=== PATIENT | female | born 1935 | race Caucasian/White ===

== ENCOUNTER 2019-03-16 10:30 | Outpatient (RCR) | payer MEDICARE, OTHER, BC, SELFPAY ==
--- NOTE | 2019-02-22 16:38 | HMH.PTOPEV ---
PT Outpatient Evaluation Rehab PT Outpatient Evaluation Start: 02/22/19 15:24 Freq: Status: Active Protocol: Document 02/22/19 15:24 MARLONMAXINE (Rec: 02/22/19 16:38 SANTIAGO [id number]) Electronically Signed By Alfred Bailon, SEUN 02/22/19 15:24 Outpatient Therapy Subjective History Subjective History This is the initial Physical Therapy evaluation for Jasmine Arvizu. Pt is an 83 y/o female referred to PT for c/o R sided SIJ pain. Pt reports pain began beginning of January. Pt reprots she was shoveling dirt out of her garage after it had rained a lot. Pt reports she did not feel any pain at the time but a day later she began having soreness and pain in low back . Pt reports now pain has localized to R sided SIJ. Chief Complaint Pain Symptom Type Sharp Symptoms Relieved By Heat Symptoms Aggravated By Twisting Prior Functional Limitations None Current Functional Limitations Housework,Recreation Activity, Stairs Symptom Description Intermittent Level of pain today (0-10) 0 Pain scale - at its best (0-10) 0 Pain scale - at its worst (0-10) 6 Lumbopelvic Eval Posture Thoracic Spine Posture Standing Position Increased Kyphosis Lumbar Spine Posture Standing Position Flexed Assistive device Assistive Devices Straight Cane Palapation tenderness right thoracic spinal tenderness No lumbar spinal tenderness No paraspinal tenderness No buttock tenderness No tenderness over symphysis pubis No Lumbar/Sacral Palpation Findings Tenderness Lumbar/Sacral Palpation Overall Comment TTP at R SIJ ligament Range of Motion Right Lumbar Spine Lateral Flexion 10 w/ pain Active Range of Motion (degrees) Lumbar Spine ROM Limitations Pain Lumbar Spine ROM Reason Not Measured Within Functional Limits Special Tests Lumbar Spine Screen Negative Hip Scouring (Quadrant) Test Positive Right Sacroiliac Joint Distraction Test Positive Right Outpatient Therapy Assessment Impairments Problems/Impairmments Palpation Tenderness,Impaired Range of Motion,Impaired Household Care,Impaired Stair Climbing,Impaired Recreational Activities,Subjective C/O Pain,Impaired Self Care/Self
== END 2019-03-16 10:35 | disposition home or self-care (01) ==
LOC: PT 10:30
PROVIDERS: Visit Provider Internal Medicine Adolescent Medicine
DX: M46.1 Sacroiliitis, not elsewhere classified (principal)
CPT/HCPCS: 97010; 97014; 97033; 97110; 97163; G0283

== ENCOUNTER → 2019-08-19 17:23 | Outpatient (CLI) | payer MEDICARE, OTHER, BC, SELFPAY | PROVIDERS: Visit Provider Obstetrics & Gynecology | DX: R39.89 Other symptoms and signs involving the genitourinary system (principal) | CPT/HCPCS: 87086; 87088; 87186 ==

== ENCOUNTER → 2019-09-29 17:33 | Outpatient (CLI) | payer MEDICARE, OTHER, BC, SELFPAY | PROVIDERS: Visit Provider Obstetrics & Gynecology | DX: N39.0 Urinary tract infection, site not specified (principal); N89.8 Other specified noninflammatory disorders of vagina | CPT/HCPCS: 87086; 87088; 87186 ==

== ENCOUNTER 2021-03-10 11:30 | Emergency (ER) | payer MEDICARE, SELFPAY ==
[2021-03-10 12:10] VITALS: BP 142/52; PULSE 61; RESP 16; TEMP 36.9; O2SAT 97; BMI 26.5
[2021-03-10 12:21] VITALS: BP 142/52; PULSE 61; RESP 16; TEMP 36.9; O2SAT 97
--- NOTE | 2021-03-10 12:31 | HMH.EDUTC ---
[facility] Disposition Clinical Impression: Generalized pain Disposition: Home, Self-Care Condition on Discharge: Good Referrals: Ryan Cast MD [Primary Care Provider] - 3 days Medical Decision Making - Medical Records Medical records reviewed: No: I reviewed the patient's medical records. - Andrew Inquiry Pt receiving controlled substance: No Vital Signs: 03/10/21 12:10 03/10/21 12:21 03/10/21 12:42 Temperature 98.4 F 98.4 F 98.5 F Temperature Source Oral Oral Pulse Rate 61 Pulse Rate [Left] 61 57 L Respiratory Rate 16 16 18 Blood Pressure 142/52 H Blood Pressure [Right Arm] 120/63 Blood Pressure [Right Radial Artery] 142/52 H Blood Pressure Mean [Right Arm] 82 Blood Pressure Mean [Right Radial Artery] 82 Blood Pressure Source Blood Pressure Source [Right Arm] Automatic Cuff Blood Pressure Source [Right Radial Artery] Automatic Cuff Blood Pressure Position Blood Pressure Position [Right Arm] Sitting Blood Pressure Position [Right Radial Artery] Sitting 02 Sat by Pulse Oximetry 97 97 Oxygen Delivery Method Room Air Room Air 03/10/21 13:18 03/10/21 14:47 03/10/21 14:58 Temperature 98.5 F Temperature Source Oral Pulse Rate 68 Pulse Rate [Left] 59 L 66 Respiratory Rate 18 18 18 Blood Pressure 119/70 Blood Pressure [Right Arm] 126/58 L 119/51 L Blood Pressure [Right Radial Artery] Blood Pressure Mean [Right Arm] 80 73 Blood Pressure Mean [Right Radial Artery] Blood Pressure Source Automatic Cuff Blood Pressure Source [Right Arm] Blood Pressure Source [Right Radial Artery] Blood Pressure Position Sitting Blood Pressure Position [Right Arm] Blood Pressure Position [Right Radial Artery] 02 Sat by Pulse Oximetry 99 97 Oxygen Delivery Method Room Air - Lab Data Lab Results 03/10/21 13:31: WBC 1.7 L*, RBC 3.01 L, Hgb 9.0 L, Hct 27.2 L, MCV 90.1, MCH 29.8, MCHC 33.1, RDW 20.0 H, Plt Count 63 L, MPV 9.7, Neut % (Auto) 28.2 L, Lymph % (Auto) 66.4 H, [place] % (Auto) 3.4, Eos % (Auto) 1.4, Baso % (Auto) 0.6, Neut # (Auto) 0.5 L*, Lymph # (Auto) 1.1, [place] # (Auto) 0.1, Eos # (Auto) 0.0, Baso # (Auto) 0.0, Total Counted 50, Neutrophils % (Manual) 38 L, Lymphocytes % (Manual) 54 H, Atypical Lymphs % 2.0, Monocytes % (Manual) 4, Eosinophils % (Manual) 2, Platelet Estimate Marked decrease, RBC Morphology Normal 03/10/21 13:31: Sodium 136, Potassium 4.1, Chloride 102, Carbon Dioxide 24, Anion Gap 10.0, BUN 19 H, Creatinine 0.80, Estimated Creat Clear 43, Estimated GFR 68, Est GFR ( Amer) 82, Glucose 118 H, Calcium 9.5 03/10/21 14:13: Urine Color Yellow, Urine Appearance Clear, Urine pH 5.5, Ur Specific [place] >= 1.030, Urine Protein 1+, Urine Glucose (UA) Negative, Urine Ketones Negative, Urine Blood 1+, Urine Nitrate Negative, Urine Bilirubin Negative, Urine Urobilinogen 1.0, Ur Leukocyte Esterase Trace, Urine RBC 5-10, Urine WBC 3-5, Ur Squamous Epith Cells 3-5, Urine Bacteria None Result diagrams: 03/10/21 13:31 03/10/21 13:31 Medical Decision Narrative: She was sent to the er due to her history, her pelvic pain and her age. [facility] HPI - General Stated complaint: fever, vaginal burning and irritation Time Seen by Provider: 03/10/21 12:33 Mode of Arrival: Ambulatory Source of Information: Patient Limitations: No Limitations Description of Symptoms (Recalled from Triage Doc. by RN): vaginal burning and pain HEENT Symptoms (Recalled from RN notes): No Resp Symptoms (Recalled from RN notes): No Skin Symptoms (Recalled from RN notes): No MS Symptoms (Recalled from RN notes): No Functional Status (Recalled from RN notes): wnl - History of Present Illness Provider Complaint: She is here with chief complaint of having pain in her groin. She has a history of vulva cancer. She had 2 lesions removed last week by her oncologist. She states that over the past 2 days she has began hurting more and more. She denies any vaginal drainage or other symp
[2021-03-10 12:42] VITALS: BP 120/63; PULSE 57; RESP 18; TEMP 36.9; O2SAT 97; BMI 26.5
--- NOTE | 2021-03-10 13:07 | CT_ITS ---
PROCEDURE INFORMATION: Exam: CT Head Without Contrast Exam date and time: 03/10/2021 1:07 PM Age: 85 years old Clinical indication: Altered mental status/memory loss; Additional info: AMS TECHNIQUE: Imaging protocol: Computed tomography of the head without contrast. Radiation optimization: All CT scans at this facility use at least one of these dose optimization techniques: automated exposure control; mA and/or kV adjustment per patient size (includes targeted exams where dose is matched to clinical indication); or iterative reconstruction. COMPARISON: No relevant prior studies available. FINDINGS: Brain: Periventricular and subcortical white matter areas of hypoattenuation, likely chronic small vessel ischemic change, demyelination, or gliosis. There is parenchymal atrophy. 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 No mass, hemorrhage, or acute infarction. Cerebral ventricles: No ventriculomegaly. Bones/joints: Normal. Paranasal sinuses: Ethmoid and left maxillary sinus disease. Mastoid air cells: Normal as visualized. Vasculature: Atherosclerotic vascular disease. Soft tissues: Unremarkable. IMPRESSION: No acute intracranial abnormality.
--- NOTE | 2021-03-10 13:11 | PC.NURSE ---
pt went to restroom, pt contaminated urine with stool. Will attempt to obtain another urine specimen
--- NOTE | 2021-03-10 13:12 | PC.NURSE ---
notified rad of CT order
[2021-03-10 13:18] VITALS: BP 126/58; PULSE 59; RESP 18; O2SAT 99
[2021-03-10 13:39] LABS: Chloride 102 mmol/L (98-107); Potassium 4.1 mmoL/L (3.5-5.1); Sodium 136 mmol/L (136-145)
[2021-03-10 13:42] LABS: Blood Urea Nitrogen 19 mg/dl (7-17); Calcium 9.5 mg/dl (8.4-10.2); Carbon Dioxide 24 mmol/L (22.0-30.0); Creatinine Clearance Estimated 43 mL/min (50-200); Estimated Glomerular Filt Rate 68 ml/min (>60); GFR (African American) 82 ML/MIN (>60); Glucose 118 mg/dl (74-100)
[2021-03-10 13:46] LABS: Mean Corpuscular HGB Conc 33.1 g/dL (31.8-35.4); Mean Corpuscular Hemoglobin 29.8 pg (27.0-31.2); Monocytes # 0.1 K/mm3 (0.1-1.0); Platelet Count 63 K/mm3 (142-424); White Blood Count 1.7 K/mm3 (4.8-10.8)
[2021-03-10 13:49] LABS: Basophils % 0.6 % (0.1-2.0); Eosinophils % 1.4 % (0.1-12.0); Hematocrit 27.2 % (37.0-47.0); Lymphocytes # 1.1 K/mm3 (0.7-4.5); Lymphocytes % 66.4 % (10-50); Mean Corpuscular Volume 90.1 fl (81-99); Mean Platelet Volume 9.7 fl (7.4-10.4); Monocytes % 3.4 % (1.7-9.3); Neutrophils # 0.5 K/mm3 (1.8-7.8); Neutrophils % 28.2 % (37.0-80.0); Red Blood Count 3.01 M/mm3 (4.20-5.40)
[2021-03-10 13:51] LABS: MANUAL DIFFERENTIAL MANUAL DIFFERENTIAL (MANUAL DIFF)
[2021-03-10 14:00] LABS: Eosinophils % 2 % (0-3); Lymphocytes % 54 % (10-50); Monocytes % 4 % (2-9); Neutrophils % 38 % (42-76); Platelet Estimate Marked Decrease; RBC Morphology Normal; Total Cells Counted 50
[2021-03-10 14:19] LABS: Microscopic, Urine URINE MICROSCOPIC (MICROSCOPIC)
[2021-03-10 14:20] LABS: Appearance,Urine CLEAR (Clear); Bilirubin,Urine Negative (Negative); Blood, Urine 1+ (Negative); Color,Urine YELLOW (Yellow); Glucose,Urine (UA) Negative (Negative); Ketones,Urine Negative (Negative); Leukocyte Esterase,Urine TRACE (Negative); Nitrate,Urine Negative (Negative); PH,Urine 5.5 (5.0-8.5); Protein,Urine 1+ (Negative); Specific Gravity, Urine >= 1.030 (1.005-1.030)
--- NOTE | 2021-03-10 14:30 | HMH.EDGENADL ---
ED Disposition Clinical Impression: Generalized pain Disposition: Home, Self-Care Condition on Discharge: Good Referrals: Ryan Cast MD [Primary Care Provider] - 3 days Time of Disposition: 14:35 - Critical Care Critical Care Time: No Attestation: On 03/10/21, the high probability of a clinically significant, sudden or life threatening deterioration of the following system(s) required my full and direct attention, intervention and personal management. The time I documented below is in addition to time spent performing reported procedures but includes the following listed in this critical care notation. Medical Decision Making - Medical Records Medical records reviewed: Yes: I reviewed the patient's medical records. - Andrew Inquiry Pt receiving controlled substance: No Vital Signs: 03/10/21 12:10 03/10/21 12:21 03/10/21 12:42 Temperature 98.4 F 98.4 F 98.5 F Temperature Source Oral Oral Pulse Rate 61 Pulse Rate [Left] 61 57 L Respiratory Rate 16 16 18 Blood Pressure 142/52 H Blood Pressure [Right Arm] 120/63 Blood Pressure [Right Radial Artery] 142/52 H Blood Pressure Mean [Right Arm] 82 Blood Pressure Mean [Right Radial Artery] 82 Blood Pressure Source [Right Arm] Automatic Cuff Blood Pressure Source [Right Radial Artery] Automatic Cuff Blood Pressure Position [Right Arm] Sitting Blood Pressure Position [Right Radial Artery] Sitting 02 Sat by Pulse Oximetry 97 97 Oxygen Delivery Method Room Air Room Air 03/10/21 13:18 Temperature Temperature Source Pulse Rate Pulse Rate [Left] 59 L Respiratory Rate 18 Blood Pressure Blood Pressure [Right Arm] 126/58 L Blood Pressure [Right Radial Artery] Blood Pressure Mean [Right Arm] 80 Blood Pressure Mean [Right Radial Artery] Blood Pressure Source [Right Arm] Blood Pressure Source [Right Radial Artery] Blood Pressure Position [Right Arm] Blood Pressure Position [Right Radial Artery] 02 Sat by Pulse Oximetry 99 Oxygen Delivery Method - Lab Data Lab results reviewed: Yes: I reviewed the patient's lab results. Lab Results 03/10/21 13:31: WBC 1.7 L*, RBC 3.01 L, Hgb 9.0 L, Hct 27.2 L, MCV 90.1, MCH 29.8, MCHC 33.1, RDW 20.0 H, Plt Count 63 L, MPV 9.7, Neut % (Auto) 28.2 L, Lymph % (Auto) 66.4 H, [place] % (Auto) 3.4, Eos % (Auto) 1.4, Baso % (Auto) 0.6, Neut # (Auto) 0.5 L*, Lymph # (Auto) 1.1, [place] # (Auto) 0.1, Eos # (Auto) 0.0, Baso # (Auto) 0.0, Total Counted 50, Neutrophils % (Manual) 38 L, Lymphocytes % (Manual) 54 H, Atypical Lymphs % 2.0, Monocytes % (Manual) 4, Eosinophils % (Manual) 2, Platelet Estimate Marked decrease, RBC Morphology Normal 03/10/21 13:31: Sodium 136, Potassium 4.1, Chloride 102, Carbon Dioxide 24, Anion Gap 10.0, BUN 19 H, Creatinine 0.80, Estimated Creat Clear 43, Estimated GFR 68, Est GFR ( Amer) 82, Glucose 118 H, Calcium 9.5 03/10/21 14:13: Urine Color Yellow, Urine Appearance Clear, Urine pH 5.5, Ur Specific [place] >= 1.030, Urine Protein 1+, Urine Glucose (UA) Negative, Urine Ketones Negative, Urine Blood 1+, Urine Nitrate Negative, Urine Bilirubin Negative, Urine Urobilinogen 1.0, Ur Leukocyte Esterase Trace, Urine RBC 5-10, Urine WBC 3-5, Ur Squamous Epith Cells 3-5, Urine Bacteria None Result diagrams: 03/10/21 13:31 03/10/21 13:31 - CT Data CT Scan: Head Time Received: 14:[address] Reviewed: Yes: I have reviewed the patient's CT results, I discussed the CT results w/the radiologist Preliminary Findings: Normal/NAD Medical Decision Narrative: 85yo F evaluated for generalized pain. Patient is in no acute distress on initial evaluation. External valvular exam is completed with nursing at bedside. Pale mucosa but no active lesion, drainage, wound appreciated. Labs are completed and mild abnormalities to urinalysis. Treatment is deferred at this time for culture. Shows patient is dehydrated. Encourage the patient to drink more water. Patient sent for CT head given the daughter's co
[2021-03-10 14:47] VITALS: BP 119/51; PULSE 66; RESP 18; O2SAT 97
[2021-03-10 14:58] VITALS: BP 119/70; PULSE 68; RESP 18; TEMP 36.9; O2SAT 94
== END 2021-03-10 14:59 | disposition home or self-care (01) ==
LOC: UTC 11:34 → ER 12:42
PROVIDERS: Family Medicine; Emergency Provider Nurse Practitioner Family; PCP Internal Medicine Adolescent Medicine
DX: R10.30 Lower abdominal pain, unspecified (principal); C51.9 Malignant neoplasm of vulva, unspecified; I10 Essential (primary) hypertension; F33.1 Major depressive disorder, recurrent, moderate; Z79.899 Other long term (current) drug therapy
CPT/HCPCS: 70450; 80048; 81001; 85007; 85025; 99284

== ENCOUNTER → 2021-03-16 13:20 | Outpatient (CLI) | payer MEDICARE, SELFPAY | PROVIDERS: Visit Provider Obstetrics & Gynecology Gynecology | DX: Z01.812 Encounter for preprocedural laboratory examination (principal); Z20.822 Contact with and (suspected) exposure to COVID-19 | CPT/HCPCS: U0003 ==

== ENCOUNTER → 2021-03-29 11:33 | Outpatient (CLI) | payer MEDICARE, SELFPAY ==
--- NOTE | 2021-03-29 13:08 | PC.NURSE ---
03/29/21 1150 Patient's daughter states that she is eating/drinking very little, which patient confirms. Reports patient is scheduled to see oncologist in [place] regarding recurrent vulvar cancer in one week. States patient last seen by Dr. Cast's office 3 weeks ago and was not seen today prior to arrival to infusion department. Patient sent here for 1 liter NS IV and labs. Patient is extremely weak and has to be lifted from wheelchair to recliner per staff. Patient is extremely pale and slightly diaphoretic. Patient's daughter reports that she has progressively gotten weaker. Patient's vital signs temp 99.2, heart rate 64, BP 100/61, O2 sat 93, resp 14. Spoke with Dr. Cast regarding patient condition/ order given to have patient evaluated in ER. 1200 Patient transported via wheelchair to ER dept/left in care of ER staff per Albina Anglin RN. Report given to MINI Boyer and Charmaine Campos RN.
== END ==
PROVIDERS: PCP Internal Medicine Adolescent Medicine; Visit Provider Internal Medicine Adolescent Medicine
DX: E86.0 Dehydration (principal); D64.9 Anemia, unspecified

== ENCOUNTER 2021-03-29 12:16 | Inpatient (IN) | payer MEDICARE, SELFPAY ==
[2021-03-29] VITALS (29 sets, daily range): BP systolic 103–155; BP diastolic 40–96; PULSE 58–74; RESP 16–18; TEMP 36.3–37.4; O2SAT 90–98; BMI 23.1; BMI 25.9
--- NOTE | 2021-03-29 12:10 | ECG_ITS ---
APPROVED REPORT Exam: Resting ECG HR:62 bpm ECG Measurements Heart Rate 62 AXES [place] 134 P 59 QRSd 84 QRS -22 QT 426 T 30 QTc 432 Conclusion Normal sinus rhythm Nonspecific ST abnormality Abnormal ECG Electronically signed by : Ryan Cast, 03/31/2021 07:29:33
--- NOTE | 2021-03-29 12:22 | HMH.EDGENADL ---
ED Disposition Clinical Impression: Pancytopenia, Dehydration, Vulvar cancer Anemia Qualifiers: Anemia type: unspecified type Qualified Code(s): D64.9 - Anemia, unspecified Disposition: Admitted as Observation Condition on Discharge: Fair Referrals: Provider,Referral, [Referring] - - Critical Care Critical Care Time: No Attestation: On , the high probability of a clinically significant, sudden or life threatening deterioration of the following system(s) required my full and direct attention, intervention and personal management. The time I documented below is in addition to time spent performing reported procedures but includes the following listed in this critical care notation. Medical Decision Making - Andrew Inquiry Pt receiving controlled substance: No Vital Signs: 03/29/21 12:16 Temperature 99.3 F Temperature Source Oral Pulse Rate [Right] 62 Respiratory Rate 18 Blood Pressure [Right Arm] 110/40 L Blood Pressure Mean [Right Arm] 63 02 Sat by Pulse Oximetry 95 Oxygen Delivery Method Room Air - Lab Data Lab Results 03/29/21 12:21: WBC 1.9 L*, RBC 2.41 L, Hgb 7.3 L*, Hct 22.2 L*, MCV 92.0, MCH 30.5, MCHC 33.2, RDW 20.7 H, Plt Count 60 L, MPV 10.5 H, Neut % (Auto) 24.5 L, Lymph % (Auto) 68.5 H, [place] % (Auto) 4.5, Eos % (Auto) 1.7, Baso % (Auto) 0.7, Neut # (Auto) 0.5 L*, Lymph # (Auto) 1.3, [place] # (Auto) 0.1, Eos # (Auto) 0.0, Baso # (Auto) 0.0, Total Counted 50, Neutrophils % (Manual) 30 L, Lymphocytes % (Manual) 64 H, Monocytes % (Manual) 4, Eosinophils % (Manual) 2, Platelet Estimate Moderate decrease, Hypochromasia 2+, Poikilocytosis 1+, Acanthocytes (Spur) 1+ 03/29/21 12:21: Sodium 139, Potassium 4.2, Chloride 107, Carbon Dioxide 25, Anion Gap 11.2, BUN 30 H, Creatinine 0.90, Estimated Creat Clear 40, Estimated GFR 60, Est GFR ( Amer) 72, Glucose 120 H, Calcium 8.8, Total Bilirubin 0.6, AST 22, ALT 14, Alkaline Phosphatase 108, Troponin I < 0.01, Total Protein 7.5, Albumin 3.8, Globulin 3.7 H, Albumin/Globulin Ratio 1.0 L 03/29/21 12:21: TSH 1.18 03/29/21 13:57: Urine Color Yellow, Urine Appearance Clear, Urine pH 5.0, Ur Specific [place] >= 1.030, Urine Protein Trace, Urine Glucose (UA) Negative, Urine Ketones Negative, Urine Blood Negative, Urine Nitrate Negative, Urine Bilirubin Negative, Urine Urobilinogen 1.0, Ur Leukocyte Esterase Trace, Urine RBC Occasional, Urine WBC 3-5, Ur Squamous Epith Cells 3-5, Urine Bacteria None Result diagrams: 03/29/21 12:21 03/29/21 12:21 Orders (Tests/Meds): ED MEDICATIONS Generic Name Dose Route Start Last Admin Trade Name Freq PRN Reason Stop Dose Admin Sodium Chloride 250 mls @ 25 mls/hr 03/29/21 13:30 Sod Chlor 0.9% 250ml Bag IV 03/30/21 13:29 .Q10H SPENCER Discontinued Medications Generic Name Dose Route Start Last Admin Trade Name Freq PRN Reason Stop Dose Admin Sodium Chloride 1,000 ml 03/29/21 12:34 03/29/21 12:52 Sodium Chloride 0.9% 1000ml Bag IV 03/29/21 12:35 1,000 ml BOLUS ONE Administration ORDERS Category Date Time Status PRBC [Red Blood Cells] Stat [facility] 03/29/21 13:26 Ordered Type and Screen Stat [facility] 03/29/21 13:26 Ordered Full Resp Panel w/COVID ([facility]) Routine Lab 03/29/21 14:17 Ordered - Radiology Data #1 Image(s): Chest Image Reviewed: Yes I reviewed the patient's radiology image, Yes I have reviewed radiologist's interpretation PROCEDURE: XR CHEST PORTABLE CLINICAL HISTORY: cough COMPARISON: No exams were available for comparison FINDINGS: The cardiomediastinal silhouette and pulmonary vascularity are within normal limits. Lucency is present overlying the right upper hemithorax laterally and may be due to skin fold artifact. There does appear to be some lung markings peripheral to this region. Upright PA and lateral chest may confirm. There is a small hiatal hernia. No acute bony abnormalities. IMPRESSION: Probable skin fold artifact on the right.
--- NOTE | 2021-03-29 12:36 | XR_ITS ---
PROCEDURE: XR CHEST PORTABLE CLINICAL HISTORY: cough COMPARISON: No exams were available for comparison FINDINGS: The cardiomediastinal silhouette and pulmonary vascularity are within normal limits. Lucency is present overlying the right upper hemithorax laterally and may be due to skin fold artifact. There does appear to be some lung markings peripheral to this region. Upright PA and lateral chest may confirm. There is a small hiatal hernia. No acute bony abnormalities. IMPRESSION: Probable skin fold artifact on the right. Consider follow-up PA and lateral chest for confirmation. Dictated by: Jaswinder Jhaveri MD 03/29/2021 13:40 Jaswinder Jhaveri MD in [place] 03/29/2021 13:40
[2021-03-29 12:42] LABS: Lymphocytes # 1.3 K/mm3 (0.7-4.5); Mean Corpuscular Hemoglobin 30.5 pg (27.0-31.2); Monocytes # 0.1 K/mm3 (0.1-1.0); Neutrophils # 0.5 K/mm3 (1.8-7.8); Platelet Count 60 K/mm3 (142-424); White Blood Count 1.9 K/mm3 (4.8-10.8)
[2021-03-29 12:44] LABS: Alanine Aminotransferase 14 U/L (12-78); Albumin Level 3.8 g/dl (3.5-5.0); Anion Gap 11.2 mEq/L (5-15); Aspartate Amino Transferase 22 U/L (14-36); Bilirubin,Total 0.6 mg/dl (0.2-1.3); Blood Urea Nitrogen 30 mg/dl (7-17); Calcium 8.8 mg/dl (8.4-10.2); Carbon Dioxide 25 mmol/L (22.0-30.0); Chloride 107 mmol/L (98-107); Creatinine Clearance Estimated 40 mL/min (50-200); Estimated Glomerular Filt Rate 60 ml/min (>60); GFR (African American) 72 ML/MIN (>60); Glucose 120 mg/dl (74-100); Potassium 4.2 mmoL/L (3.5-5.1); Sodium 139 mmol/L (136-145); Total Protein,Serum 7.5 g/dl (6.3-8.2)
[2021-03-29 12:45] LABS: Alkaline Phosphatase 108 U/L (38-126); Globulin 3.7 g/dL (1.3-3.2)
[2021-03-29 12:48] LABS: Basophils % 0.7 % (0.1-2.0); Eosinophils % 1.7 % (0.1-12.0); Lymphocytes % 68.5 % (10-50); Mean Corpuscular HGB Conc 33.2 g/dL (31.8-35.4); Mean Platelet Volume 10.5 fl (7.4-10.4); Monocytes % 4.5 % (1.7-9.3); Neutrophils % 24.5 % (37.0-80.0); Red Blood Count 2.41 M/mm3 (4.20-5.40); Red Cell Distribution Width 20.7 % (11.5-17.5)
[2021-03-29 12:53] LABS: Hematocrit 22.2 % (37.0-47.0); Hemoglobin 7.3 g/dL (12.2-16.2)
--- NOTE | 2021-03-29 12:54 | PC.NURSE ---
Took Critical lab values: Hemoglobin 7.2, Hematocrit 22.2
[2021-03-29 12:55] LABS: MANUAL DIFFERENTIAL MANUAL DIFFERENTIAL (MANUAL DIFF)
[2021-03-29 12:57] LABS: Troponin I < 0.01 ng/ml (0.00-0.034)
[2021-03-29 13:03] LABS: Acanthocytes 1+; Eosinophils % 2 % (0-3); Hypochromasia 2+; Lymphocytes % 64 % (10-50); Monocytes % 4 % (2-9); Neutrophils % 30 % (42-76); Platelet Estimate Moderate Decrease; Poikilocytosis 1+; Total Cells Counted 50
[2021-03-29 13:20] LABS: Thyroid Stimulating Hormone 1.18 uIU/mL (0.465-4.68)
--- NOTE | 2021-03-29 13:30 | PC.NURSE ---
PATIENT REFUSED STRAIGHT CATHETER INSERTION
--- NOTE | 2021-03-29 14:03 | PC.NURSE ---
Called lab back to draw type and screen.
[2021-03-29 14:04] LABS: Microscopic,Cath URINE MICROSCOPIC (MICROSCOPIC)
[2021-03-29 14:07] LABS: Appearance,Urine/Cath CLEAR (Clear); Bilirubin,Cath Negative (Negative); Blood, Urine/Cath Negative (Negative); Color,Urine/Cath YELLOW (Yellow); Glucose,Urine/Cath (UA) Negative (Negative); Ketones,Urine/Cath Negative (Negative); Leukocyte Esterase,Cath TRACE (Negative); Nitrate,Cath Negative (Negative); Protein,Urine/Cath TRACE (Negative); Specific Gravity, Urine/Cath >= 1.030 (1.005-1.030)
[2021-03-29 14:14] LABS: RBC,Urine/Cath Occasional # /hpf (0-3)
--- NOTE | 2021-03-29 14:15 | PC.NURSE ---
speaking with Serene at this time.
--- NOTE | 2021-03-29 14:23 | PC.NURSE ---
COVID swab sent up
--- NOTE | 2021-03-29 14:25 | PC.NURSE ---
CONSENT FOR TRANSFUSION WAS OBTAINED
[2021-03-29 14:30] LABS: Adenovirus,PCR Not Detected (NotDetected); Bordetella Pertussis Not Detected (NotDetected); Chlamydophila Pneumoniae, PCR Not Detected (NotDetected); Coronavirus 19, PCR Not Detected (NotDetected); Coronavirus 229E Not Detected (NotDetected); Coronavirus NL63 Not Detected (NotDetected); Coronavirus OC43 Not Detected (NotDetected); Coronovirus HKU1,PCR Not Detected (NotDetected); Human Metapneumovirus Not Detected (NotDetected); Influenza A, PCR Not Detected (NotDetected); Influenza AH1, 2009 Not Detected (NotDetected); Influenza AH1, PCR Not Detected (NotDetected); Influenza AH3,PCR Not Detected (NotDetected); Influenza B, PCR Not Detected (NotDetected); Mycoplasma Pneumoniae, PCR Not Detected (NotDetected); Parainfluenza 1, PCR Not Detected (NotDetected); Parainfluenza 2, PCR Not Detected (NotDetected); Parainfluenza 3, PCR Not Detected (NotDetected); Parainfluenza 4, PCR Not Detected (NotDetected); Respiratory Syncytial Virus Not Detected (NotDetected); Rhinovirus/Enterovirus Not Detected (NotDetected)
--- NOTE | 2021-03-29 14:36 | PC.NURSE ---
Called Andra in care management for a bed. Serene Cast.
--- NOTE | 2021-03-29 15:18 | PC.NURSE ---
Lab called and advised blood is ready on pt. [id number]. [id number] Johnson Melendez RN is going to retrieve units.
--- NOTE | 2021-03-29 15:45 | PC.NURSE ---
MINI Melendez at bedside monitoring patient and administering blood.
--- NOTE | 2021-03-29 16:23 | PC.NURSE ---
ATTEMPTED TO CALL REPORT TO THE FLOOR NURSE BUT ZEYNEP MORSE INFORMED NURSE WAS UNAVAILABLE TO TAKE REPORT AT THIS TIME. ZEYNEP MORSE INFORMED THE NURSE WILL CALL BACK
--- NOTE | 2021-03-29 16:30 | PC.NURSE ---
GAVE REPORT TO FRANCISCA 2ND FLOOR CHARGE NURSE AT THIS TIME
--- NOTE | 2021-03-29 16:30 | PC.NURSE ---
FRANCISCA RN MADE AWARE PT IS RECEIVING 1 UNIT OF BLOOD AT THIS TIME
--- NOTE | 2021-03-29 16:47 | PC.NURSE ---
SEE TAR FOR PATIENT VITAL SIGNS. VITAL SIGN PAPER HANDED OFF TO FLOOR NURSE
--- NOTE | 2021-03-29 17:05 | HMH.HP ---
*Admission Date: 03/29/21 *Chief complaint: Anemia/dehydration *History of present illness: 85-year-old white female with history of recurrent vulvar cancer, who has a host of other multiple medical problems who recently has had a recurrence of the vulvar cancer and has seen radiation oncology at [facility]. They visited last week and elected to pursue radiation seed implants for purely palliative measures-the choice was between radiation therapy or increasing narcotics. Because of constipation and confusion and weakness she elected to do seed implantation which is scheduled for further evaluation and mapping of planned implantation next week. Unfortunately over the last couple of days she has become increasingly weak, diminished p.o. intake, inability to stand and walk. I was planning to have her come to the infusion center to get labs and fluids but in the infusion center she was extremely weak, pale and we transferred her to the ER. In the ER when she was found to have symptomatic anemia, dehydration and was admitted to hospital overnight for 2 units of packed cells and IV fluids. [facility] History I have reviewed the patient's past medical history: Yes Medical History: Reports:: Depression, Hypertension, Urinary Tract Infection Denies:: Anxiety, Diabetes Mellitus Type 1 *Have you ever received a pneumonia vaccine?: No *Have you received a flu vaccine this season?: Yes Other Medical History: Reports: Arthritis, Thyroid Disease Amputation: No Fractures: No - *Social History Smoking Status: Never smoker Alcohol Intake: never Alcohol Intake Frequency:: other Substance Use Type: denies use *Occupational Status:: retired *Travel in the last 8 weeks: None - Psychiatric History Pschychiatric History:: Reports:: Depression Denies:: Anxiety Family Hx:: No significant family history Review of Systems - Review of Systems Review of systems:: pertinent systems reviewed and negative unless documented below - *Neurologic Reports weakness Meds Home Medications Medication Instructions Recorded Confirmed Type amlodipine 10 mg-valsartan 160 mg 1 tab PO ONCE 03/17/18 03/29/21 History tablet aspirin 81 mg tablet,delayed 81 mg PO ONCE 03/17/18 03/29/21 History release levothyroxine 112 mcg capsule 112 mcg PO ONCE 03/17/18 03/29/21 History omeprazole 40 mg capsule,delayed 40 mg PO ONCE 03/17/18 03/29/21 History release potassium chloride 20 mEq oral 20 meq PO BID 03/17/18 03/29/21 History packet coenzyme Q10 100 mg capsule 100 mg PO DAILY #30 cap 09/29/19 03/29/21 History Duloxetine HCl 30 mg PO DIRECTED 03/29/21 03/29/21 History Oxybutynin Chloride [Oxybutynin 10 mg PO DAILY 03/29/21 03/29/21 History Chloride ER] Oxycodone HCl 5 mg PO Q6 03/29/21 03/29/21 History Terconazole 1 appful VAGINAL QHS 03/29/21 03/29/21 History carvediloL [Carvedilol 3.125mg Tab] 3.125 mg PO BID 03/29/21 03/29/21 History cephALEXin [Cephalexin 250mg Tab] 250 mg PO DAILY 03/29/21 03/29/21 History Allergies Allergy/AdvReac Type Severity Reaction Status Date / Time Sulfa (Sulfonamide Allergy Intermediate I-RASH Verified 10/13/19 08:08 Antibiotics) amoxicillin Allergy Unknown Verified 10/13/19 08:08 atorvastatin [From Lipitor] Allergy Verified 03/29/21 12:27 fenofibrate Allergy Verified 03/29/21 12:27 [id number]-Ddg Reductase Allergy Verified 03/29/21 12:27 Inhibitor Exam Vital signs and Labs for Last 24 Hours: Temp Pulse Resp BP Pulse Ox 98.1 F 64 18 129/53 L 94 L 03/29/21 16:25 03/29/21 16:25 03/29/21 16:25 03/29/21 16:25 03/29/21 16:25 Laboratory Results - last 24 hr 03/29/21 12:21: WBC 1.9 L*, RBC 2.41 L, Hgb 7.3 L*, Hct 22.2 L*, MCV 92.0, MCH 30.5, MCHC 33.2, RDW 20.7 H, Plt Count 60 L, MPV 10.5 H, Neut % (Auto) 24.5 L, Lymph % (Auto) 68.5 H, [place] % (Auto) 4.5, Eos % (Auto) 1.7, Baso % (Auto) 0.7, Neut # (Auto) 0.5 L*, Lymph # (Auto) 1.3, [place] # (Auto) 0.1, Eos # (Auto) 0.0
--- NOTE | 2021-03-29 22:26 | PC.NURSE ---
PT USED BEDSIDE COMMODE AND HAD ADEQUATE U/O AND BM AT THIS TIME.
[2021-03-29 23:18] LABS: Hematocrit 27.8 % (37.0-47.0)
[2021-03-29 23:29] LABS: Hemoglobin 8.9 g/dL (12.2-16.2)
--- NOTE | 2021-03-30 03:39 | PC.NURSE ---
PT A&OX3, CONFUSED AT TIMES. PT TOLERATING RA WELL. PT RECIEVED 2ND UNIT OF BLOOD THIS SHIFT, TOLERATED WELL. PT HAS HAD NO C/O THUS FAR THIS SHIFT. PT HAS HAD ADEQUATE U/O. X2 ASSIST. VSS WILL CONTINUE TO MONITOR.
[2021-03-30 04:00] VITALS: BP 133/56; PULSE 62; RESP 18; TEMP 37.2; O2SAT 94
[2021-03-30 05:00] VITALS: BMI 26.9
[2021-03-30 06:27] LABS: Basophils % 0.4 % (0.1-2.0); Eosinophils % 1.3 % (0.1-12.0); Hematocrit 26.8 % (37.0-47.0); Lymphocytes # 1.2 K/mm3 (0.7-4.5); Lymphocytes % 63.6 % (10-50); Mean Corpuscular HGB Conc 33.7 g/dL (31.8-35.4); Mean Corpuscular Hemoglobin 30.9 pg (27.0-31.2); Mean Corpuscular Volume 91.8 fl (81-99); Mean Platelet Volume 9.8 fl (7.4-10.4); Monocytes # 0.1 K/mm3 (0.1-1.0); Monocytes % 5.6 % (1.7-9.3); Neutrophils # 0.6 K/mm3 (1.8-7.8); Neutrophils % 29.1 % (37.0-80.0); Red Blood Count 2.92 M/mm3 (4.20-5.40); Red Cell Distribution Width 19.2 % (11.5-17.5); White Blood Count 1.9 K/mm3 (4.8-10.8)
[2021-03-30 06:35] LABS: MANUAL DIFFERENTIAL MANUAL DIFFERENTIAL (MANUAL DIFF); Platelet Count 47 K/mm3 (142-424)
[2021-03-30 06:37] LABS: Anion Gap 10.9 mEq/L (5-15); Blood Urea Nitrogen 20 mg/dl (7-17); Calcium 8.4 mg/dl (8.4-10.2); Carbon Dioxide 22 mmol/L (22.0-30.0); Chloride 109 mmol/L (98-107); Creatinine Clearance Estimated 42 mL/min (50-200); Estimated Glomerular Filt Rate 95 ml/min (>60); GFR (African American) 115 ML/MIN (>60); Glucose 99 mg/dl (74-100); Potassium 3.9 mmoL/L (3.5-5.1); Sodium 138 mmol/L (136-145)
[2021-03-30 07:36] VITALS: BP 113/57; PULSE 65; RESP 20; TEMP 36.4; O2SAT 92
--- NOTE | 2021-03-30 07:37 | HMH.PHAVTE ---
[facility] Pharmacy VTE Monitoring - Patient Demographics Admission date: 03/29/21 Report Date: 03/30/21 Time: 07:37 Allergies/Adverse Reactions: Patient Allergies Sulfa (Sulfonamide Antibiotics) Allergy (Intermediate, Verified 10/13/19 08:08) I-RASH amoxicillin Allergy (Unknown, Verified 10/13/19 08:08) atorvastatin [From Lipitor] Allergy (Verified 03/29/21 12:27) fenofibrate Allergy (Verified 03/29/21 12:27) Hftterl-Gcc-Xfm Reductase Inhibitor Allergy (Verified 03/29/21 12:27) Height: 1.57 m Weight: 66.366 kg Patient Problems: Current Active Problems Generalized pain (Acute) Anemia (Acute) Pancytopenia (Acute) Dehydration (Acute) Vulvar cancer (Acute) - VTE Risk Labs: VTE Related Lab Results Hgb 9.0 g/dL (12.2-16.2) L 03/30/21 06:08 Hct 26.8 % (37.0-47.0) L 03/30/21 06:08 Plt Count 47 K/mm3 (142-424) L* 03/30/21 06:08 BUN 20 mg/dl (7-17) H D 03/30/21 06:08 Creatinine 0.60 mg/dl (0.52-1.04) D 03/30/21 06:08 Estimated Creat Clear 42 mL/min (50-200) 03/30/21 06:08 Was VTE Risk Assessment Performed: Yes VTE Score: 3 VTE Risk Level: Low Risk Clinical Trial Participant: No - Prophylaxis VTE Prophylaxis Ordered?: Yes Types of VTE Prophylaxis: TEDS Knee High
[2021-03-30 09:25] LABS: Lymphocytes % 57 % (10-50); Microcytosis 1+; Monocytes % 11 % (2-9); Neutrophils % 32 % (42-76); Platelet Estimate Marked Decrease; Total Cells Counted 100
--- NOTE | 2021-03-30 09:33 | SW/DCPLANNER ---
Addendum entered by Erin Matta 03/30/21 12:16: This patient will discharge home with Hospice services: both daughters are in agreement. [facility] will set up all appropriate DME at home prior to patient returning home. Patient will discharge today. Addendum entered by Erin Matta 03/30/21 10:39: Harini with Hospice is here to evaluate this patient. Original Note: Patient information has been faxed to Clari/Deepti with [facility] at family request. Deepti has confirmed that nurse will be to [facility] to evaluate this patient. I will inform family of a time once I speak with Deepti. Patient will more than likely discharge home later this afternoon with Hospice services.
[2021-03-30 11:03] VITALS: BMI 26.7
--- NOTE | 2021-03-30 11:11 | DIET.NUTRFU ---
Pt with severe protein calorie malnutrition rt Cancer with loss 17% BW past year and minimal PO intakes for >1mo. Diet edu/counseling for malnutrition/cancer provided to pt and daughter at bedside, encouraged them to reach out with any nutritional questions/concerns at any time post dc.
--- NOTE | 2021-03-30 14:19 | HMH.DCSUM ---
General - General Admission date:: 03/29/21 Discharge date: 03/30/21 HPI HPI: 85-year-old white female with history of recurrent vulvar cancer, who has a host of other multiple medical problems who recently has had a recurrence of the vulvar cancer and has seen radiation oncology at [facility]. They visited last week and elected to pursue radiation seed implants for purely palliative measures-the choice was between radiation therapy or increasing narcotics. Because of constipation and confusion and weakness she elected to do seed implantation which is scheduled for further evaluation and mapping of planned implantation next week. Unfortunately over the last couple of days she has become increasingly weak, diminished p.o. intake, inability to stand and walk. I was planning to have her come to the infusion center to get labs and fluids but in the infusion center she was extremely weak, pale and we transferred her to the ER. In the ER when she was found to have symptomatic anemia, dehydration and was admitted to hospital overnight for 2 units of packed cells and IV fluids. Hospital Course Hospital Course: 85-year-old female with incurable vulvar cancer, admitted for fatigue and weakness. Was admitted overnight with administration of 2 units of packed cells, 1 L of fluid and labs in the morning. Labs this morning are stable. Negative cultures over 24 hours. Patient did a fair job with p.o. intake. Extensive discussion about goals of care with patient and family at bedside. Given incurable vulvar cancer, advanced age, chronic medical conditions and her anemia, will plan to transfer patient home with hospice care. Hospice consulted during admission and found patient meeting criteria for their services. Examined patient on day of discharge. She had no specific complaints. Plan to discharge her home with hospice with focus on quality of life and time with family. Objective Vital signs: Temp Pulse Resp BP Pulse Ox 97.6 F 65 20 113/57 L 92 L 03/30/21 07:36 03/30/21 07:36 03/30/21 07:36 03/30/21 07:36 03/30/21 07:36 Narrative: - Constitutional minimal distress, chronically ill appearing - *Routine HEENT Exam Head: Present: normocephalic Eye: Present: EOMI, PERRL ENT: Present: mucous membranes dry Comments: Edentulous, pale. - *Routine Neck Exam Present: supple. Absent: lymphadenopathy - *Routine Respiratory Exam Present: CTA bilaterally - *Routine Cardiovascular Exam Present: RRR - *Routine Abdominal Exam Present: soft, normoactive bowel sounds. Absent: tenderness - *Routine Rectal Exam Rectal:: deferred - *Routine Genitalia Exam Genitalia:: deferred - *Routine Extremities Exam Absent: cyanosis, clubbing, edema - *Routine Skin Exam Present: intact, dry, pallor, warm. Absent: rash Results Labs on day of discharge: Labs from last 24 hours 03/30/21 03/30/21 03/29/21 06:08 06:08 23:00 WBC 1.9 L* RBC 2.92 L Hgb 9.0 L 8.9 L D Hct 26.8 L 27.8 L MCV 91.8 MCH 30.9 MCHC 33.7 RDW 19.2 H Plt Count 47 L* MPV 9.8 Neut % (Auto) 29.1 L Lymph % (Auto) 63.6 H Dillon % (Auto) 5.6 Eos % (Auto) 1.3 Baso % (Auto) 0.4 Neut # (Auto) 0.6 L* Lymph # (Auto) 1.2 Dillon # (Auto) 0.1 Eos # (Auto) 0.0 Baso # (Auto) 0.0 Total Counted 100 Neutrophils % (Manual) 32 L Lymphocytes % (Manual) 57 H Monocytes % (Manual) 11 H Platelet Estimate Marked decrease Microcytosis 1+ Sodium 138 Potassium 3.9 Chloride 109 H Carbon Dioxide 22 Anion Gap 10.9 BUN 20 H D Creatinine 0.60 D Estimated Creat Clear 42 Estimated GFR 95 Est GFR ( Amer) 115 D Glucose 99 Calcium 8.4 Chlamy pneumoniae PCR Adenovirus (PCR) B. pertussis DNA (PCR) Coronavirus OC43 (PCR) Coronavirus HKU1 (PCR) Coronavirus 229E (PCR) SARS-CoV-2 (PCR) Coronavirus N
[2021-03-30 15:54] VITALS: BP 120/62; PULSE 64; RESP 20; TEMP 36.6; O2SAT 92
--- NOTE | 2021-03-30 19:34 | PC.NURSE ---
THIS RN PROVIDED D/C EDUCATIONS TO PATIENT'S DAUGHTER, QUESTIONS WERE ASKED IN REGARDS TO MEDICATIONS. SANTHOSH CASTREJON PROVIDED ANSWERS. NO NEW CONCERNS ON D/C.
== END 2021-03-30 16:23 | disposition hospice, home (50) | DRG 756 ==
LOC: ER 14:18 → 2ND 14:46
PROVIDERS: Admitting Provider Internal Medicine Adolescent Medicine; Emergency Provider Emergency Medicine; PCP Internal Medicine Adolescent Medicine; Visit Provider Internal Medicine Adolescent Medicine
DX: C51.9 Malignant neoplasm of vulva, unspecified (principal); D63.0 Anemia in neoplastic disease; E86.0 Dehydration; Z79.82 Long term (current) use of aspirin; Z51.5 Encounter for palliative care
CPT/HCPCS: 36415; 71045; 80048; 80053; 81001; 84443; 84484; 85007; 85014; 85018; 85025; 86850; 87581; 87633; 87798; 93005; 96365; 99284; P9016